=== PATIENT | female | born 1995 | race Caucasian/White ===

== ENCOUNTER 2023-01-24 21:43 | Inpatient (IN) ==
[2023-01-24] MEDS ORDERED: D5 1/2 NS 1,000 ML 1,000 ML IV ONE (21:56)
[2023-01-24 22:00] VITALS: BMI 24.6
[2023-01-24] MEDS ORDERED: D5 1/2 NS 1,000 ML 1,000 ML IV SCH ×2 (22:00→23:00)
[2023-01-24 22:26] LABS: BASOPHILS # (AUTO) 0.1 X10^3/uL (0.0-0.1); BASOPHILS % (AUTO) 0.7 % (0.2-1.0); EOSINOPHILS # (AUTO) 0.3 x10^3/uL (0.0-0.2); EOSINOPHILS % (AUTO) 2.2 % (0.9-2.9); HEMATOCRIT 33.5 % (36.0-47.0); LYMPHOCYTES # (AUTO) 2.5 X10^3/uL (1.3-2.9); LYMPHOCYTES % (AUTO) 21.8 % (21.0-51.0); MEAN CORPUSCULAR HEMOGLOBIN 24.7 pg (27.0-34.0); MEAN CORPUSCULAR HGB CONC 32.7 g/dL (33.0-35.0); MEAN CORPUSCULAR VOLUME 75.4 fL (80.0-100.0); MEAN PLATELET VOLUME 8.5 fL (7.4-11.0); MONOCYTES # (AUTO) 0.9 x10^3/uL (0.3-0.8); MONOCYTES % (AUTO) 7.5 % (0.0-13.0); NEUTROPHILS # (AUTO) 7.9 x10^3/uL (2.2-4.8); NEUTROPHILS % (AUTO) 67.8 % (42.0-75.0); PLATELET COUNT 287 X10^3/uL (150.0-450.0); RED BLOOD COUNT 4.44 X10^6/uL (3.5-5.4); WHITE BLOOD COUNT 11.6 X10^3/uL (3.6-10.0)
[2023-01-24 22:30] LABS: BILIRUBIN,URINE NEGATIVE (NEGATIVE); BLOOD/HEMOGLOBIN,URINE 1+ (NEGATIVE); GLUCOSE, URINE NEGATIVE (NEGATIVE); KETONES,URINE NEGATIVE (NEGATIVE); LEUKOCYTE ESTERASE ,URINE 1+ (NEGATIVE); NITRITES,URINE NEGATIVE (NEGATIVE); PH,URINE 6.5 (5.0 - 8.0); PROTEIN,URINE NEGATIVE (NEGATIVE); UROBILINOGEN,URINE NORMAL (NORMAL)
[2023-01-24 22:31] LABS: AMNISURE ROM TEST THERE IS A RUPTURE (NO RUPTURE)
[2023-01-24] MEDS ORDERED: ZOFRAN INJ 4 MG VIAL IVP PRN (22:34)
[2023-01-24] MEDS ORDERED: STADOL INJ IVP PRN (22:34)
[2023-01-24] MEDS ORDERED: PITOCIN IVP ONE (22:34)
[2023-01-24] MEDS ORDERED: D5 LR + PITOCIN 10 UNITS/L 10 UNITS/1,000 ML BAG IV PRN (22:34)
[2023-01-24] MEDS ORDERED: REGLAN INJ 10 MG VIAL IVP PRN (22:34)
[2023-01-24] MEDS ORDERED: LR 1,000 ML IV 1,000 ML IV ONE ×2 (22:34→22:54)
[2023-01-24 22:35] LABS: ALANINE AMINOTRANSFERASE 17 Units/L (12-78); ALBUMIN 2.7 g/dL (3.4-5.0); ALKALINE PHOSPHATASE 157 Units/L (46-116); ASPARTATE AMINO TRANSFERASE 10 Units/L (15-37); BLOOD UREA NITROGEN 9 mg/dL (7-18); CALCIUM 8.6 mg/dL (8.5-10.1); CARBON DIOXIDE 22.4 mmol/L (21-32); CHLORIDE 104 mmol/L (98-107); COR CA(FOR HYPOALB) 9.6 mg/dL (8.5-10.1); CREATININE 0.72 mg/dL (0.55-1.02); GLUCOSE 97 mg/dL (65-99); POTASSIUM 3.7 mmol/L (3.5-5.1); SODIUM 137 mmol/L (136-145); TOTAL PROTEIN 6.7 g/dL (6.4-8.2); eGFR NON BLACK RACES > 60 (>60)
[2023-01-24 22:51] LABS: APPEARANCE,URINE CLEAR (CLEAR); BACTERIA,URINE TRACE /HPF (NEGATIVE); COLOR,URINE PALE YELLOW (YELLOW); RBC,URINE 0-2 /HPF (0-3); SQUAMOUS EPITHELIAL CELL,UR RARE /HPF (NEGATIVE)
[2023-01-24] MEDS ORDERED: FENTANYL VIAL INJ 100 mcg ONE (22:53)
[2023-01-24] MEDS ORDERED: PITOCIN ONE (22:54)
[2023-01-24] MEDS ORDERED: BETADINE SOLN ONE (22:54)
[2023-01-24] MEDS ORDERED: D5 LR + PITOCIN 10 UNITS/L 10 UNITS/1,000 ML BAG IV ONE (22:55)
[2023-01-24] MEDS ORDERED: NAROPIN EPIDURAL 0.2% 100 ML ONE (23:26)
[2023-01-25] MEDS ORDERED: HEMABATE IM ONE (03:34)
--- NOTE | 2023-01-25 03:59 | DR.OB ---
OB Quick Note - Assessment/Plan Assessment/Plan: Delivery Note GENERAL PRACTITIONER 01/25/23 at 3:55am Compound , right hand Patient complete and pushing. Head delivered over intact perineum. Right hand at head. Nose and mouth bulb suctioned. No nuchal cord. Body delivered over intact perineum. Cord clamped x 2 and cut. Infant handed to attendant. Cord sent for gases. Placenta delivered spontaneously / intact / 3 vessel cord. No CVX tears. A midline second degree tear noted and repaired with 0-vicryl in usu al fashion. Viable male , VTX/OA, wt=7'8" and 8/9, stable to NBN. Mother stable to RR. [id number].
[2023-01-25] MEDS ORDERED: AMBIEN PO PRN (04:43)
[2023-01-25] MEDS ORDERED: ADACEL or BOOSTRIX TDaP VACCINE IM ONE ×2 (04:43→14:56)
[2023-01-25] MEDS ORDERED: DERMOPLAST PAIN RELIEF SPRAY TOP PRN (04:43)
[2023-01-25] MEDS ORDERED: MILK OF MAGNESIA PO PRN (04:43)
[2023-01-25 05:13] LABS: HEMATOCRIT 29.1 % (36.0-47.0); HEMOGLOBIN 9.6 g/dL (12.0-16.0)
[2023-01-25] MEDS: D5 1/2 NS 1,000 ML 1,000 ML with PITOCIN 20 UNITS IV SCH ×8 (05:26→19:15)
[2023-01-25] MEDS: PRENATAL PLUS PO SCH (11:31)
[2023-01-25] MEDS: MOTRIN TAB 800 MG PO PRN (15:09)
[2023-01-25 22:05] VITALS: O2SAT 97
[2023-01-26] MEDS: D5 1/2 NS 1,000 ML 1,000 ML with PITOCIN 20 UNITS IV SCH ×2 (05:30)
[2023-01-26] MEDS: PRENATAL PLUS PO SCH (08:17)
[2023-01-26 08:39] VITALS: BP 113/68; PULSE 100; TEMP 98.6
[2023-01-26] MEDS: MOTRIN TAB 800 MG PO PRN (10:35)
== END 2023-01-26 12:00 | disposition home or self-care (01) | DRG 807 ==
LOC: ER 21:46 → LD 22:21 → MED/SURG 01-25 05:14
PROVIDERS: ADMIT Specialist; ATTEND Specialist
DX: Z3A.39 39 weeks gestation of pregnancy; O26.893 Other specified pregnancy related conditions, third trimester; Z37.0 Single live birth; O70.1 Second degree perineal laceration during delivery